=== PATIENT | female | born 1960 | race Hispanic/Latino ===

== ENCOUNTER 2023-10-19 02:20 | Emergency (ER) | payer MEDICAID ==
[~2023-10-19] VITALS: Ht 157.5 cm; Wt 65.8 kg
[2023-10-19] MEDS: IBUPROFEN 600 MG TABLET PO ONE (03:46)
[2023-10-19] MEDS ORDERED: ACETAMINOPHEN 325 MG TAB PO ONE (04:00)
[2023-10-19 04:23] VITALS: BP 134/74; PULSE 84; RESP 18; O2SAT 95
== END 2023-10-19 04:24 | disposition home or self-care (01) ==
LOC: EDH 02:20
DX: S20.211A Contusion of right front wall of thorax, initial encounter (principal); T74.21XA Adult sexual abuse, confirmed, initial encounter; I10 Essential (primary) hypertension; E11.9 Type 2 diabetes mellitus without complications; E78.00 Pure hypercholesterolemia, unspecified; Z90.710 Acquired absence of both cervix and uterus; Z88.0 Allergy status to penicillin; Y04.0XXA Assault by unarmed brawl or fight, initial encounter; Y93.89 Activity, other specified; Y92.89 Other specified places as the place of occurrence of the external cause; Y99.8 Other external cause status
CPT/HCPCS: 71045; 84484; 93005